=== PATIENT | male | born 1975 | race Two or more races ===

== ENCOUNTER 2017-07-13 13:16 | Emergency (ER) | payer OTHER ==
[~2017-07-13] VITALS: Ht 152.4 cm; Wt 72.6 kg
== END 2017-07-13 14:34 | disposition home or self-care (01) ==
LOC: ER 13:16
DX: S61.522A Laceration with foreign body of left wrist, initial encounter (principal); W26.0XXA Contact with knife, initial encounter; Y93.89 Activity, other specified; Y92.098 Other place in other non-institutional residence as the place of occurrence of the external cause; Y99.8 Other external cause status

== ENCOUNTER 2017-07-24 08:26 | Emergency (ER) | payer OTHER ==
[~2017-07-24] VITALS: Ht 172.7 cm; Wt 72.6 kg
== END 2017-07-24 09:35 | disposition home or self-care (01) ==
LOC: ER 08:26
DX: Z48.02 Encounter for removal of sutures (principal)

== ENCOUNTER 2019-11-28 08:27 | Emergency (ER) | payer OTHER ==
[~2019-11-28] VITALS: Ht 172.7 cm; Wt 77.1 kg
== END 2019-11-28 09:14 | disposition home or self-care (01) ==
LOC: ER 08:27
DX: S01.01XA Laceration without foreign body of scalp, initial encounter (principal); W22.8XXA Striking against or struck by other objects, initial encounter; Y93.89 Activity, other specified; Y92.018 Other place in single-family (private) house as the place of occurrence of the external cause; Y99.8 Other external cause status